=== PATIENT | male | born 1975 | race Caucasian/White ===

== ENCOUNTER → 2020-04-22 17:17 | Outpatient (BNVA) | payer BC, SELFPAY | PROVIDERS: Visit Provider Nurse Practitioner | DX: Z13.6 Encounter for screening for cardiovascular disorders (principal); F41.9 Anxiety disorder, unspecified; L98.9 Disorder of the skin and subcutaneous tissue, unspecified; E11.65 Type 2 diabetes mellitus with hyperglycemia | CPT/HCPCS: 81000; 83036; 85025 ==

== ENCOUNTER → 2020-08-05 00:01 | Outpatient (BNVA) | payer BC, SELFPAY | PROVIDERS: PCP Nurse Practitioner; Visit Provider Dermatology | DX: B96.89 Other specified bacterial agents as the cause of diseases classified elsewhere (principal); L08.9 Local infection of the skin and subcutaneous tissue, unspecified | CPT/HCPCS: 87070 ==

== ENCOUNTER → 2020-09-18 08:49 | Outpatient (BNVA) | payer BC, SELFPAY | PROVIDERS: PCP Nurse Practitioner; Visit Provider Nurse Practitioner | DX: E11.65 Type 2 diabetes mellitus with hyperglycemia (principal); F41.9 Anxiety disorder, unspecified; Z68.23 Body mass index [BMI] 23.0-23.9, adult | CPT/HCPCS: 80053; 82043; 83036; 85025 ==

== ENCOUNTER → 2021-01-28 10:34 | Outpatient (BNVA) | payer BC, SELFPAY | PROVIDERS: PCP Nurse Practitioner; Visit Provider Nurse Practitioner | DX: E11.65 Type 2 diabetes mellitus with hyperglycemia (principal); F41.9 Anxiety disorder, unspecified | CPT/HCPCS: 80053; 80061; 82043; 83036 ==

== ENCOUNTER → 2021-07-21 15:03 | Outpatient (BNVA) | payer BC, SELFPAY | PROVIDERS: PCP Nurse Practitioner; Visit Provider Nurse Practitioner | DX: E11.65 Type 2 diabetes mellitus with hyperglycemia (principal); F41.9 Anxiety disorder, unspecified; R53.83 Other fatigue | CPT/HCPCS: 80053; 80061; 82043; 83036; 84403 ==

== ENCOUNTER 2021-11-25 13:46 | Outpatient (CLI) | payer BC, SELFPAY ==
--- NOTE | 2021-11-25 15:30 | CT_ITS ---
WS: [id number] CT CHEST, ABDOMEN AND PELVIS NONCONTRAST. HISTORY: R63.4 - Abnormal weight loss 30 pound weight loss. TECHNIQUE: Contiguous 5 mm axial imaging performed through the chest, abdomen and pelvis without IV c ontrast, oral contrast has been provided. Coronal and sagittal reformats chest. Coronal and sagittal reformats through the abdomen and pelvis. All CT scans at [facility] use at least one of thes e dose optimization techniques: automated exposure control; mA and/or kV adjustment per patient size (includes targeted exams where dose is matched to clinical indication); or iterative reconstruction. CONTRAST: None DLP: 1330.91 mGy.cm COMPARISON: None available. Chest CT: Lungs are clear. There are a few tiny micronodules. No mass or other nodules. No pneumonia. Normal size heart. No pericardial or pleural effusions. No mediastinal or hilar adenopathy. Normal s ize aorta and pulmonary artery. Small hiatal hernia. Abdomen CT: Mild heterogeneity throughout the liver but no discrete mass noted on this unenhanced exa mination. Normal size spleen. Area of decreased attenuation in the central spleen measures 1.6 cm. Pa ncreas is normal. No adrenal mass. Kidneys are negative. Normal size aorta. No retroperitoneal adenop athy. No omental disease. Stomach is well distended with oral contrast. There is thickening along the fundal portion of the sto mach which could be food products or neoplastic infiltration. Should be further evaluated by endoscop y. There is also mild thickening towards the antrum of the stomach which could be due to peristalsis, inflammation or neoplasm. Minimal distention of the small bowel. Some of the small bowel melendez appea r thickened in the LEFT upper quadrant but this could be due to underdistention also. No adjacent inf lammation. The appendix is normal. Normal appearance of the colon. Pelvic CT: Postoperative changes in the LEFT inguinal region from prior hernia repair. No pelvic lymp h nodes. CT/[place] [id number] IMPRESSION: 1. Lobulated soft tissue thickening along the fundus of the stomach and mild t hickening at the antrum of the stomach. These areas should be further evaluated by endoscopy. Alternatively these changes may be due to food products within t he stomach and peristalsis towards the antrum. 2. Mild heterogeneity in the liver and spleen. CT evaluation with IV contrast would be very helpful to evaluate for neoplastic lesions within the liver and s pleen and all visceral organs. 3. No adenopathy or ascites. 4. Normal appendix. 5. No pulmonary mass or nodule.
== END 2021-11-25 13:47 | disposition home or self-care (01) ==
PROVIDERS: PCP Nurse Practitioner; Visit Provider Nurse Practitioner
DX: R63.4 Abnormal weight loss (principal)
CPT/HCPCS: 71250; 74176

== ENCOUNTER → 2022-01-12 10:33 | Outpatient (BNVA) | payer BC, SELFPAY | PROVIDERS: PCP Nurse Practitioner; Visit Provider Nurse Practitioner | DX: E11.65 Type 2 diabetes mellitus with hyperglycemia (principal); K29.70 Gastritis, unspecified, without bleeding; F41.9 Anxiety disorder, unspecified | CPT/HCPCS: 80053; 80061; 82043; 83036; 85025 ==

== ENCOUNTER → 2022-06-23 13:54 | Outpatient (BNVA) | payer BC, SELFPAY | PROVIDERS: PCP Nurse Practitioner; Visit Provider Nurse Practitioner | DX: E11.65 Type 2 diabetes mellitus with hyperglycemia (principal) | CPT/HCPCS: 82043 ==

== ENCOUNTER → 2023-03-04 14:41 | Outpatient (BNVA) | payer BC, SELFPAY | PROVIDERS: PCP Nurse Practitioner; Visit Provider Nurse Practitioner | DX: E11.65 Type 2 diabetes mellitus with hyperglycemia (principal); F41.9 Anxiety disorder, unspecified; G47.00 Insomnia, unspecified; K29.70 Gastritis, unspecified, without bleeding; E03.9 Hypothyroidism, unspecified; I10 Essential (primary) hypertension; J06.9 Acute upper respiratory infection, unspecified | CPT/HCPCS: 80053; 80061; 83036; 84443 ==

== ENCOUNTER → 2023-06-24 09:51 | Outpatient (BNVA) | payer BC, SELFPAY | PROVIDERS: PCP Nurse Practitioner; Visit Provider Nurse Practitioner Family | DX: R31.9 Hematuria, unspecified (principal) | CPT/HCPCS: 74018; 80053; 81000; 84153; 85025 ==

== ENCOUNTER → 2023-08-19 15:26 | Outpatient (BNVA) | payer BC, SELFPAY | PROVIDERS: PCP Nurse Practitioner; Visit Provider Nurse Practitioner | DX: E11.9 Type 2 diabetes mellitus without complications (principal); I10 Essential (primary) hypertension; E11.65 Type 2 diabetes mellitus with hyperglycemia; F41.9 Anxiety disorder, unspecified; G47.00 Insomnia, unspecified | CPT/HCPCS: 80053; 80061; 81000; 82607; 83036; 84443 ==

== ENCOUNTER → 2024-02-03 14:50 | Outpatient (BNVA) | payer BC, SELFPAY | PROVIDERS: PCP Nurse Practitioner; Visit Provider Nurse Practitioner | DX: E11.9 Type 2 diabetes mellitus without complications (principal); E03.9 Hypothyroidism, unspecified; E11.65 Type 2 diabetes mellitus with hyperglycemia | CPT/HCPCS: 80053; 80061; 81000; 82043; 83036; 84443 ==

== ENCOUNTER → 2024-05-24 16:41 | Outpatient (BNVA) | payer BC, SELFPAY | PROVIDERS: PCP Nurse Practitioner; Visit Provider Nurse Practitioner | DX: E11.9 Type 2 diabetes mellitus without complications (principal) | CPT/HCPCS: 80053; 80061; 83036 ==

== ENCOUNTER → 2024-07-03 11:48 | Outpatient (BNVA) | payer BC, SELFPAY | PROVIDERS: PCP Nurse Practitioner; Visit Provider Clinical Nurse Specialist Adult Health | DX: S93.402A Sprain of unspecified ligament of left ankle, initial encounter (principal); W17.89XA Other fall from one level to another, initial encounter | CPT/HCPCS: 73610 ==

== ENCOUNTER → 2024-10-11 08:43 | Outpatient (BNVA) | payer BC, SELFPAY | PROVIDERS: PCP Nurse Practitioner; Visit Provider Nurse Practitioner | DX: I10 Essential (primary) hypertension (principal); E11.65 Type 2 diabetes mellitus with hyperglycemia; E03.9 Hypothyroidism, unspecified; E55.9 Vitamin D deficiency, unspecified; F41.9 Anxiety disorder, unspecified; K29.70 Gastritis, unspecified, without bleeding | CPT/HCPCS: 80053; 80061; 81000; 82043; 82306; 82607; 83036; 84443 ==